=== PATIENT | male | born 1995 | race Caucasian/White ===

== ENCOUNTER → 2017-07-11 | Emergency (ER) | payer OTHER ==
[~2017-07-11] VITALS: Ht 162.6 cm; Wt 86.2 kg
[~2017-07-11] MED LIST: BACLOFEN10 MG PO; CYCLOBENZAPRINE10 MG PO; IBUPROFEN200 MG PO; IBUPROFEN800 MG PO; METHYLPREDNISOLO4 M1 PO; NORCO 5-325 TA1 EACH PO
== END ==
LOC: ED 19:02
DX: M54.40 Lumbago with sciatica, unspecified side (principal); F17.200 Nicotine dependence, unspecified, uncomplicated; Z88.1 Allergy status to other antibiotic agents
CPT/HCPCS: 99283

== ENCOUNTER 2022-05-27 09:26 | Emergency (ER) | payer OTHER, BC ==
[~2022-05-27] VITALS: Ht 162.6 cm; Wt 93.8 kg
--- NOTE | 2022-05-27 20:38 | EKG ---
[facility] [address] [facility] [place] [address] Signed Normal sinus rhythm Normal ECG No previous ECGs available Confirmed by JEMMA MTZ MD ([id number]) on 05/27/2022 8:37:59 PM Electronically Signed By: JEMMA MTZ MD 05/27/222037 PATIENT NAME: JEROME WARREN YONG Electrocardiogram DATE OF : [birth year] PHYSICIAN: JEMMA MTZ MD REPORT #: [id number] REPORT IS CONFIDENTIAL AND NOT TO BE RELEASED WITHOUT AUTHORIZATION
== END 2022-05-27 13:17 | disposition home or self-care (01) ==
LOC: ED 09:26
DX: S06.5X9A Traumatic subdural hemorrhage with loss of consciousness of unspecified duration, initial encounter (principal); F17.200 Nicotine dependence, unspecified, uncomplicated; W01.0XXA Fall on same level from slipping, tripping and stumbling without subsequent striking against object, initial encounter; Z88.8 Allergy status to other drugs, medicaments and biological substances
CPT/HCPCS: 70450; 93005; 93010; 99406; A9270